=== PATIENT | male | born 2000 | race African-American/Black ===

== ENCOUNTER 2022-06-30 07:05 | Emergency (ER) | payer BC, SELFPAY ==
[2022-06-30] MEDS ORDERED: Ketorolac Tromethamine 30 MG/ML VIAL ONE (07:54)
== END 2022-06-30 08:40 | disposition home or self-care (01) ==
LOC: ERS 07:05
DX: M54.50 Low back pain, unspecified (principal); Z87.891 Personal history of nicotine dependence
CPT/HCPCS: 96372; 99283; J1885

== ENCOUNTER 2022-09-05 23:22 | Emergency (ER) | payer BC, SELFPAY ==
[2022-09-06] MEDS ORDERED: Ketorolac Tromethamine 30 MG/ML VIAL ONE (01:46)
== END 2022-09-06 01:50 | disposition home or self-care (01) ==
LOC: ERS 23:22
DX: J18.9 Pneumonia, unspecified organism (principal)
CPT/HCPCS: 71045; 93005; 96372; J1885